=== PATIENT | female | born 1945 | race Caucasian/White ===

== ENCOUNTER 2022-08-06 14:00 | Outpatient (RCR) | payer MEDICARE, SELFPAY | END 2022-08-06 14:05 | disposition home or self-care (01) | LOC: PT 14:00 | PROVIDERS: PCP General Practice; Visit Provider General Practice | DX: I89.0 Lymphedema, not elsewhere classified (principal) | CPT/HCPCS: 97140; 97162; 97164 ==

== ENCOUNTER 2023-06-04 14:00 | Outpatient (RCR) | payer MEDICARE, SELFPAY | END 2023-06-04 15:15 | disposition home or self-care (01) | LOC: PT 14:00 | PROVIDERS: PCP General Practice; Visit Provider General Practice | DX: I89.0 Lymphedema, not elsewhere classified (principal) | CPT/HCPCS: 97140; 97163; 97164 ==

== ENCOUNTER 2024-11-11 15:00 | Outpatient (RCR) | payer MEDICARE, MEDICAID, SELFPAY | END 2024-11-11 23:59 | disposition home or self-care (01) | LOC: PT 15:00 | PROVIDERS: PCP General Practice; Visit Provider Family Medicine | DX: I89.0 Lymphedema, not elsewhere classified (principal) | CPT/HCPCS: 97140; 97163 ==